=== PATIENT | male | born 1940 | race Caucasian/White ===

== ENCOUNTER → 2017-09-01 | Outpatient (CLI) | payer MEDICARE, OTHER | END | disposition home or self-care (01) | LOC: HKI 14:10 | DX: M25.562 Pain in left knee (principal); R22.42 Localized swelling, mass and lump, left lower limb; E78.00 Pure hypercholesterolemia, unspecified; Z98.61 Coronary angioplasty status; Z79.82 Long term (current) use of aspirin | CPT/HCPCS: 73564; 73564-50 ==

== ENCOUNTER → 2017-09-18 | Outpatient (CLI) | payer MEDICARE, OTHER | END | disposition home or self-care (01) | LOC: HKI 13:27 | DX: Z01.818 Encounter for other preprocedural examination (principal); M25.562 Pain in left knee; I10 Essential (primary) hypertension; I25.10 Atherosclerotic heart disease of native coronary artery without angina pectoris; E78.5 Hyperlipidemia, unspecified; G40.909 Epilepsy, unspecified, not intractable, without status epilepticus; G47.30 Sleep apnea, unspecified; Z96.641 Presence of right artificial hip joint; Z95.0 Presence of cardiac pacemaker; Z79.82 Long term (current) use of aspirin | CPT/HCPCS: 87081 ==

== ENCOUNTER 2017-09-28 08:04 | Inpatient (IN) | payer MEDICARE, OTHER ==
[~2017-09-28 08:04] MED LIST: ROCURONIUM 50 MG INJ
[2017-09-28] MEDS: ACETAMINOPHEN 1000MG/100ML IV 100 ML IVPB (09:19)
[2017-09-28] MEDS: PANTOPRAZOLE (EC) 40 MG TAB PO (09:20)
[2017-09-28] MEDS: ONDANSETRON 4 MG INJ IV ×3 (09:20→15:02)
[2017-09-28] MEDS: DEXAMETHASONE 4 MG/ML 1 ML INJ IV (09:20)
[2017-09-28] MEDS: LACTATED RINGER'S 1,000 ML IV ×2 (09:21→17:30)
[2017-09-28] MEDS ORDERED: CEFAZOLIN 2 GM/50 ML (PMX) 50 ML (FOR WT < 120 KG) IVPB (10:00)
[2017-09-28] MEDS: CEFAZOLIN 2 GM/50 ML (PMX) 50 ML (FOR WT < 120 KG) IVPB (10:00)
[2017-09-28] MEDS ORDERED: CEFAZOLIN 1 GM INJ (11:36)
[2017-09-28] MEDS ORDERED: PROPOFOL 20 ML (11:36)
[2017-09-28] MEDS ORDERED: FENTAnyl 50 MCG/ML VIAL (11:37)
[2017-09-28] MEDS ORDERED: BUPIVACAINE 0.75%/DEXT (SPINAL) 2 ML INJ (11:37)
[2017-09-28] MEDS ORDERED: ROPIVACAINE 0.5 % 30 ML VIAL (11:37)
[2017-09-28] MEDS ORDERED: MIDAZOLAM 1 MG/ML 2 ML INJ (11:37)
[2017-09-28] MEDS ORDERED: METOCLOPRAMIDE 10 MG INJ (12:30)
[2017-09-28] MEDS ORDERED: PHENYLephrine (100 MCG/ML) 5ML SYG ×2 (12:30→13:25)
[2017-09-28] MEDS ORDERED: ONDANSETRON 4 MG INJ (12:30)
[2017-09-28] MEDS ORDERED: DEXAMETHASONE 4 MG/ML 1 ML INJ (12:30)
[2017-09-28] MEDS: BACITRACIN 50000 UNITS INJ (12:57)
[2017-09-28] MEDS: POLYMYXIN B 500000 UNIT INJ (12:57)
[2017-09-28] MEDS ORDERED: NALOXONE (0.4 MG/ML) INJ IV ×2 (13:00→14:00)
[2017-09-28] MEDS ORDERED: DIPHENHYDRAMINE 50 MG INJ IV ×3 (13:00→14:00)
[2017-09-28] MEDS ORDERED: ZOLPIDEM 5 MG TAB PO (13:00)
[2017-09-28] MEDS ORDERED: oxyCODONE 5 MG TAB PO (13:00)
[2017-09-28] MEDS ORDERED: SENNA/DOCUSATE NA (8.6MG/50MG) TAB PO (13:00)
[2017-09-28] MEDS ORDERED: TRIMETHOBENZAMIDE 100 MG/ML VIAL IM (13:00)
[2017-09-28] MEDS ORDERED: BETHANECHOL 25 MG TAB PO (13:00)
[2017-09-28] MEDS ORDERED: BISACODYL 10 MG SUPP PR (13:00)
[2017-09-28] MEDS: TRANEXAMIC ACID 1,000 MG in D5W 100 ML AT CLOSURE X1 IVPB (13:02)
[2017-09-28] MEDS ORDERED: EPHEDrine SULFATE 50 MG/5 ML SYG IV (14:00)
[2017-09-28] MEDS ORDERED: MEPERIDINE 25 MG INJ IV (14:00)
[2017-09-28] MEDS ORDERED: FENTAnyl 50 MCG/ML VIAL IV ×2 (14:00)
[2017-09-28] MEDS ORDERED: hydrALAzine 20 MG INJ IV (14:00)
[2017-09-28] MEDS ORDERED: HYDROmorphONE (0.2 MG/ML) 10ML SYG IV ×2 (14:00)
[2017-09-28] MEDS ORDERED: OXYCODONE/ACETAMINOPHEN (5/325) TAB PO ×2 (14:00)
[2017-09-28] MEDS ORDERED: ONDANSETRON 4 MG INJ IV (14:00)
[2017-09-28] MEDS ORDERED: ALBUMIN HUMAN 5% 250 ML IV (14:00)
[2017-09-28] MEDS ORDERED: LABETALOL HCL 20MG INJ IV (14:00)
[2017-09-28] MEDS ORDERED: NALBUPHINE HCL (10 MG/1 ML) INJ IV (14:00)
[2017-09-28] MEDS ORDERED: METOCLOPRAMIDE 10 MG INJ IV (14:00)
[2017-09-28] MEDS: TRANEXAMIC ACID 1,000 MG in D5W 100 ML AT INCISION X1 IVPB (14:47)
[2017-09-28] MEDS: CEFAZOLIN 1 GM/50 ML (PMX) 50 ML IVPB ×2 (15:02→20:53)
[2017-09-28] MEDS: ASPIRIN (EC) 325 MG TAB PO (15:03)
[2017-09-28] MEDS: DOCUSATE SODIUM 100 MG CAP PO (15:03)
[2017-09-28] MEDS ORDERED: [UNRECOGNIZED DRUG - REMARK] XX (17:00)
[2017-09-28] MEDS: LISINOPRIL 20 MG TAB PO (17:28)
[2017-09-28] MEDS: SOD CHLORIDE 0.9% 1,000 ML IV (17:28)
[2017-09-28] MEDS: LEVETIRACETAM 500 MG TAB PO (19:25)
[2017-09-28] MEDS: LAMOTRIGINE 25 MG TAB PO (19:26)
[2017-09-28] MEDS: ATORVASTATIN 10 MG TAB PO (20:42)
[2017-09-28] MEDS: KETOROLAC 15 MG INJ IV (20:50)
[2017-09-28] MEDS: CELECOXIB 100 MG CAP PO (21:00)
[2017-09-28] MEDS ORDERED: LEVETIRACETAM 500 MG TAB PO (21:00)
[2017-09-28] MEDS ORDERED: LEVETIRACETAM 750 MG TAB PO (21:00)
[2017-09-28] MEDS: GABAPENTIN 100 MG CAP PO (21:00)
[2017-09-28] MEDS ORDERED: LAMOTRIGINE 25 MG TAB PO (21:00)
[2017-09-28] MEDS ORDERED: NON-FORMULARY/PATIENT OWN MED (Rosuvastatin Calcium* (Crestor*) 20 MG) PO (21:00)
[2017-09-28] MEDS: oxyCODONE 5 MG TAB PO (23:32)
[2017-09-29] MEDS: SOD CHLORIDE 0.9% 1,000 ML IV (01:24)
[2017-09-29] MEDS: LACTATED RINGER'S 1,000 ML IV ×2 (01:31→10:00)
[2017-09-29] MEDS: CEFAZOLIN 1 GM/50 ML (PMX) 50 ML IVPB (05:11)
[2017-09-29] MEDS: oxyCODONE 5 MG TAB PO ×2 (05:11→15:08)
[2017-09-29 05:49] LABS: ADD MAN DIFF? NO
[2017-09-29 06:13] LABS: HEMATOCRIT 36.9 % (42.0-52.0); HEMOGLOBIN 12.7 g/dl (14.0-18.0); LYMPHOCYTES # 0.8 10^3/ul (0.8-2.9); LYMPHOCYTES % 7.4 % (15.0-51.0); MEAN CORPUSCULAR HEMOGLOBIN 31.1 pg (29.0-33.0); MEAN CORPUSCULAR HGB CONC 34.4 g/dl (32.0-37.0); MEAN CORPUSCULAR VOLUME 90.2 fl (82.0-101.0); MEAN PLATELET VOLUME 10.3 fl (7.4-10.4); MONOCYTE # 0.5 10^3/ul (0.3-0.9); MONOCYTES % 4.5 % (0.0-11.0); NEUTROPHIL # 9.2 10^3/ul (1.6-7.5); NEUTROPHILS % 87.4 % (39.0-77.0); PLATELET COUNT 188 10^3/UL (140-415); RED BLOOD COUNT 4.09 10^6/ul (4.70-6.10); RED CELL DISTRIBUTION WIDTH 12.1 % (11.5-14.5)
[2017-09-29 06:13] LABS: WHITE BLOOD COUNT 10.5 10^3/ul (4.8-10.8)
[2017-09-29 06:30] LABS: ANION GAP 9 (8-16); BLOOD UREA NITROGEN 20 mg/dl (7-20); CALCIUM 8.7 mg/dl (8.4-10.2); CARBON DIOXIDE 30 mmol/L (21-31); CHLORIDE 109 mmol/L (97-110); CREATININE 0.71 mg/dl (0.61-1.24); GLUCOSE 113 mg/dl (70-220); POTASSIUM 3.7 mmol/L (3.5-5.1); SODIUM 144 mmol/L (135-144)
[2017-09-29] MEDS: FERROUS FUMARATE (SR) TAB PO ×2 (08:46→20:01)
[2017-09-29] MEDS: DOCUSATE SODIUM 100 MG CAP PO ×2 (08:47→20:01)
[2017-09-29] MEDS: MULTIVITAMINS/MINERALS TAB PO (08:48)
[2017-09-29] MEDS: LEVETIRACETAM 500 MG TAB PO ×2 (08:49→20:02)
[2017-09-29] MEDS: GABAPENTIN 100 MG CAP PO ×2 (08:50→20:09)
[2017-09-29] MEDS: LISINOPRIL 20 MG TAB PO (08:50)
[2017-09-29] MEDS: CELECOXIB 100 MG CAP PO ×2 (08:50→20:01)
[2017-09-29] MEDS: LAMOTRIGINE 25 MG TAB PO ×2 (08:50→20:02)
[2017-09-29] MEDS: ISOSORBIDE MONONITRATE(SR)30 MG TAB PO (08:51)
[2017-09-29] MEDS: CLOPIDOGREL 75 MG TAB PO (08:51)
[2017-09-29] MEDS ORDERED: LYCOPENE PO (09:00)
[2017-09-29] MEDS: ASPIRIN (EC) 325 MG TAB PO ×2 (09:00→13:13)
[2017-09-29] MEDS ORDERED: LUTEIN PO (09:00)
[2017-09-29] MEDS ORDERED: [UNRECOGNIZED DRUG - OTHER] PO (09:00)
[2017-09-29] MEDS ORDERED: MU VITS MIN TH PO (09:00)
[2017-09-29] MEDS: ATORVASTATIN 10 MG TAB PO (20:01)
[2017-09-29] MEDS: MAGNESIUM HYDROXIDE 30ML CUP PO (21:51)
[2017-09-29 23:50] LABS: ADD UMIC NO; UR ASCORBIC ACID 40 mg/dL (NEGATIVE); UR BILIRUBIN (Dip) NEGATIVE (NEGATIVE); UR BLOOD (Dip) NEGATIVE (NEGATIVE); UR CLARITY CLEAR (CLEAR); UR COLOR YELLOW (YELLOW); UR GLUCOSE (Dip) NEGATIVE (NEGATIVE); UR KETONES (Dip) TRACE mg/dL (NEGATIVE); UR LEUKOCYTE ESTERASE (Dip) NEGATIVE Leu/ul (NEGATIVE); UR NITRITE (Dip) NEGATIVE (NEGATIVE); UR SPECIFIC GRAVITY (Dip) 1.029 (1.003-1.030); UR TOTAL PROTEIN (Dip) NEGATIVE (NEGATIVE); UR UROBILINOGEN (Dip) NEGATIVE (NEGATIVE)
[2017-09-30 05:50] LABS: ADD MAN DIFF? NO
[2017-09-30] MEDS: PANTOPRAZOLE (EC) 40 MG TAB PO (06:00)
[2017-09-30 06:01] LABS: WHITE BLOOD COUNT 6.2 10^3/ul (4.8-10.8)
[2017-09-30 06:01] LABS: BASOPHILS % 0.3 % (0.0-2.0); EOSINOPHILS # 0.1 10^3/ul (0.0-0.5); EOSINOPHILS % 1.1 % (0.0-7.0); HEMATOCRIT 31.9 % (42.0-52.0); HEMOGLOBIN 10.5 g/dl (14.0-18.0); LYMPHOCYTES # 1.7 10^3/ul (0.8-2.9); LYMPHOCYTES % 27.5 % (15.0-51.0); MEAN CORPUSCULAR HEMOGLOBIN 30.8 pg (29.0-33.0); MEAN CORPUSCULAR HGB CONC 32.9 g/dl (32.0-37.0); MEAN CORPUSCULAR VOLUME 93.5 fl (82.0-101.0); MEAN PLATELET VOLUME 10.2 fl (7.4-10.4); MONOCYTE # 0.7 10^3/ul (0.3-0.9); MONOCYTES % 11.5 % (0.0-11.0); NEUTROPHIL # 3.6 10^3/ul (1.6-7.5); NEUTROPHILS % 59.3 % (39.0-77.0); PLATELET COUNT 168 10^3/UL (140-415); RED BLOOD COUNT 3.41 10^6/ul (4.70-6.10); RED CELL DISTRIBUTION WIDTH 12.6 % (11.5-14.5)
[2017-09-30 06:20] LABS: ANION GAP 11 (8-16); BLOOD UREA NITROGEN 30 mg/dl (7-20); CALCIUM 8.5 mg/dl (8.4-10.2); CARBON DIOXIDE 33 mmol/L (21-31); CHLORIDE 104 mmol/L (97-110); CREATININE 0.86 mg/dl (0.61-1.24); GLUCOSE 88 mg/dl (70-220); POTASSIUM 3.9 mmol/L (3.5-5.1); SODIUM 144 mmol/L (135-144)
[2017-09-30] MEDS: ASPIRIN (EC) 325 MG TAB PO (08:14)
[2017-09-30] MEDS: DOCUSATE SODIUM 100 MG CAP PO (08:14)
[2017-09-30] MEDS: CELECOXIB 100 MG CAP PO (08:15)
[2017-09-30] MEDS: LEVETIRACETAM 500 MG TAB PO (08:15)
[2017-09-30] MEDS: LAMOTRIGINE 25 MG TAB PO (08:16)
[2017-09-30] MEDS: FERROUS FUMARATE (SR) TAB PO (08:17)
[2017-09-30] MEDS: GABAPENTIN 100 MG CAP PO (08:17)
[2017-09-30] MEDS: CLOPIDOGREL 75 MG TAB PO (08:17)
[2017-09-30] MEDS: LISINOPRIL 20 MG TAB PO (08:17)
[2017-09-30] MEDS: ISOSORBIDE MONONITRATE(SR)30 MG TAB PO (08:17)
[2017-09-30] MEDS: MULTIVITAMINS/MINERALS TAB PO (08:25)
[2017-09-30] MEDS: NA PHOSPHATE/BIPHOS 133 ML ENEMA PR (10:37)
== END 2017-09-30 12:45 | disposition home health service (06) | DRG 470 ==
LOC: REC 08:04 → MS1 15:47
PROC: 0SRD0J9 Replacement of Left Knee Joint with Synthetic Substitute, Cemented, Open Approach (ICD-10-PCS; principal; 2017-09-28 12:00)
PROC: 0QHC04Z Insertion of Internal Fixation Device into Left Lower Femur, Open Approach (ICD-10-PCS; 2017-09-28 12:00)
DX: M17.12 Unilateral primary osteoarthritis, left knee (principal); M96.89 Other intraoperative and postprocedural complications and disorders of the musculoskeletal system; M21.162 Varus deformity, not elsewhere classified, left knee; Y83.8 Other surgical procedures as the cause of abnormal reaction of the patient, or of later complication, without mention of misadventure at the time of the procedure; Y92.234 Operating room of hospital as the place of occurrence of the external cause; I25.2 Old myocardial infarction; E78.5 Hyperlipidemia, unspecified; I10 Essential (primary) hypertension; I25.10 Atherosclerotic heart disease of native coronary artery without angina pectoris; Z96.641 Presence of right artificial hip joint
CPT/HCPCS: 73560; 80048; 81003; 85025; 86850; 86900; 86901; 87081; 87086; 88304; 97110; 97116; 97163; 97165

== ENCOUNTER → 2017-10-16 | Outpatient (CLI) | payer MEDICARE, OTHER | END | disposition home or self-care (01) | LOC: HKI 09:25 | DX: Z09 Encounter for follow-up examination after completed treatment for conditions other than malignant neoplasm (principal); Z96.652 Presence of left artificial knee joint; R22.42 Localized swelling, mass and lump, left lower limb; R20.0 Anesthesia of skin | CPT/HCPCS: 73560; 73560-LT ==

== ENCOUNTER → 2017-11-27 | Outpatient (CLI) | payer MEDICARE, OTHER | END | disposition home or self-care (01) | LOC: HKI 11:10 | DX: Z47.1 Aftercare following joint replacement surgery (principal); Z96.652 Presence of left artificial knee joint ==

== ENCOUNTER → 2018-01-08 | Outpatient (CLI) | payer MEDICARE, OTHER | END | disposition home or self-care (01) | LOC: HKI 11:15 | DX: Z09 Encounter for follow-up examination after completed treatment for conditions other than malignant neoplasm (principal); S72.92XD Unspecified fracture of left femur, subsequent encounter for closed fracture with routine healing; X58.XXXD Exposure to other specified factors, subsequent encounter; Z96.651 Presence of right artificial knee joint | CPT/HCPCS: 73560; 73560-LT ==

== ENCOUNTER → 2018-02-12 | Outpatient (CLI) | payer MEDICARE, OTHER | END | disposition home or self-care (01) | LOC: HKI 10:42 | DX: Z47.1 Aftercare following joint replacement surgery (principal); Z96.652 Presence of left artificial knee joint | CPT/HCPCS: G0463 ==

== ENCOUNTER → 2018-04-02 | Outpatient (CLI) | payer MEDICARE, OTHER | END | disposition home or self-care (01) | LOC: HKI 10:36 | DX: M25.662 Stiffness of left knee, not elsewhere classified (principal); L90.5 Scar conditions and fibrosis of skin; Z96.652 Presence of left artificial knee joint; Z96.642 Presence of left artificial hip joint | CPT/HCPCS: 73560; 73560-LT ==

== ENCOUNTER → 2018-07-09 | Outpatient (CLI) | payer MEDICARE, OTHER | END | disposition home or self-care (01) | LOC: HKI 11:08 | DX: Z09 Encounter for follow-up examination after completed treatment for conditions other than malignant neoplasm (principal); M25.662 Stiffness of left knee, not elsewhere classified; Z96.652 Presence of left artificial knee joint | CPT/HCPCS: 73560; 73560-LT ==